=== PATIENT | male | born 1960 | race Caucasian/White ===

== ENCOUNTER → 2016-07-31 | Day surgery (SDC) | payer OTHER ==
[~2016-07-31] MED LIST: ACETAMINOPHEN/HYDROcodone 325 MG/5 MG TAB ONE; BUPIVACAINE/EPINEPHRINE 0.5% PF 30 ML VIAL ONE; KETOROLAC TROMETHAMINE 30 MG/ML (IVP) VIAL IV PUSH ONE; LACTATED RINGER'S 1000 ML INJ 1,000 ML ONE; LORT5TAB PO; MEPERIDINE HCL 50 MG/ML VIAL ONE; MIDAZOLAM HCL 2 MG/2 ML VIAL ONE; ONDANSETRON HCL 4 MG/2 ML VIAL IV PUSH ONE; PROPOFOL 200 MG/20 ML AMP IV ONE; SODIUM CHLORIDE 0.9% 250 ML ADDBAG IV ONE; VANCOMYCIN HCL 1000 MG VIAL ONE; Z.0.NO CURRENT MEDS
--- NOTE | 2016-07-31 16:37 | TN ---
cc: MAMI REED,LEONARDO Michel M.D. DATE OF SURGERY: 07/31/2016. PREOPERATIVE DIAGNOSIS: Bilateral inguinal hernia, left greater than right. POSTOPERATIVE DIAGNOSIS: Bilateral inguinal hernia, left greater than right. OPERATIVE PROCEDURE PERFORMED: Laparoscopic repair of bilateral inguinal hernias. ANESTHESIA: General. SURGEON: Leonardo Klein MD. INDICATIONS FOR THE PROCEDURE: This is a pleasant 56-year-old gentleman who was referred to the office. He had bilateral inguinal hernias. Plans were made for the above. DESCRIPTION OF THE PROCEDURE IN DETAIL: The patient was taken to the operating room and placed in the supine position. After endotracheal anesthesia, his abdomen was prepped with Betadine. We made an incision below the umbilicus. We got into the preperitoneal space or what was thought to be the preperitoneal space. We placed the dissecting balloon but actually there was a rent just below the umbilicus. We got into the abdomen. We carefully inspected this and then got into the preperitoneal space and insufflated with a dissecting balloon under videoscopic surveillance. The rent was noted on the left side of the abdomen that measured approximately 2 cm. It was high up just below the umbilicus. Once the dissecting balloon was removed the trocar balloon was then placed the preperitoneal space was insufflated to 14 mmHg. We did note that a small amount of air did get in the peritoneal cavity. We then placed two other ports; one above the pubic tubercle and on in-between two previously placed ports. We then directed our attention to the left side where the larger hernia was noted. We got into the posterior window behind the vas deferens. We dissected into the window and reduced the direct defect completely. The epigastric vessels were identified. We dissected the sac off the cord structures as low as possible. We then placed a piece of polypropylene mesh cut to size, a 3 x 6 cm piece, with tails fashioned to surround the cord structures. This was placed into the posterior window and the cord structures were surrounded with the polypropylene mesh. We secured it to the pubic tubercle and Derrick's ligament and laterally avoiding the cutaneous vessels. The tails were then secured to themselves and the anterior abdominal fascia. This was all done with a tacking device avoiding the epigastric vessels. A small slit that had been cut off the mesh was then buttressed in the crotch of the mesh securing it to the Coopers ligament and to the mesh itself just lateral to the slit. We then directed our attention to the right side. On the right side, a similar hernia was seen although smaller. This was completely reduced. It was an indirect type hernia. It was completely reduced to the preperitoneal space. It did not have a cord lipoma. A similar piece of mesh was then utilized after we got into the posterior window behind the cord structures. It was secured to the pubic tubercle and Derrick's ligament and the anterior abdominal fascia. Tails were fashioned around the cord structures and then tacked to themselves avoiding the epigastric vessel. A small 1 cm sliver of mesh was then used to buttress the crotch of the mesh securing it to Derrick's ligament and the mesh itself lateral to the cord structures and the epigastric vessels. After this was done, we checked our dissection line. There was excellent hemostasis. We placed 20 cc of Marcaine with epinephrine in the preperitoneal space. The trocars were removed. The fascia was closed with a #0 Vicryl in an interrupted fashion. The skin was closed with a 4-0 Vicryl. Steri-Strips were applied. Sterile bandage applied. The patient tolerated the procedure well and had no immediate MD RACHEL Andrade/RHIANNA /4:18 PM /4:26 PM
== END | disposition home or self-care (01) ==
LOC: ESDC 12:44
PROVIDERS: ATTEND Surgery
DX: K40.20 Bilateral inguinal hernia, without obstruction or gangrene, not specified as recurrent (principal)
CPT/HCPCS: 00840; 49650; C1727; C1781; J1885; J2175; J2250; J2405; J3010; J3370; J7120